=== PATIENT | female | born 1955 | race Caucasian/White ===

== ENCOUNTER 2016-11-26 06:55 | Day surgery (SDC) | payer BC ==
--- NOTE | ~2016-11-26 | EGD ---
EGD REPORT [facility] [address] [address] NAME: KATTY CAMARA : 57 STATUS : REG [facility]#: [id number] AGE: 61 ADM/REG DATE : 11/26/16 MR#: [id number] REPORT SERV DATE: 11/26/16 DICTATED BY: PALAK STILL DATE: 11/26/16 REPORT STATUS : Draft TRANS[facility] BY: [facility] DATE: 11/26/16 Endoscopy Center Patient Name: Katty Camara Date of : 1955 Attending MD: PALAK STILL MD Procedure Date No Time: 11/26/2016 Procedure: Upper GI endoscopy Indications: Follow-up of Esqueda's esophagus Referring MD: CALVIN RIOS Medicines: as per anesthesia Complications: No immediate complications. Procedure: Pre-Anesthesia Assessment: - ASA Grade Assessment: II - A patient with mild systemic disease. After obtaining informed consent, the endoscope was passed under direct vision. Throughout the procedure, the patient's blood pressure, pulse, and oxygen saturations were monitored continuously. The GIF [id number] was introduced through the mouth, and advanced to the third part of duodenum. The upper GI endoscopy was accomplished without difficulty. The patient tolerated the procedure. Findings: There were esophageal mucosal changes secondary to established short-segment Esqueda's disease present in the lower third of the esophagus. The maximum longitudinal extent of these mucosal changes was 1 cm in length. Mucosa was biopsied with a cold forceps for histology randomly at intervals of 1 cm in the lower third of the esophagus. One specimen bottle was sent to pathology. 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 The gastrojejunal anastomosis was characterized by healthy appearing mucosa. This was traversed. The mfqsv-yv-bpbzqau limb was characterized by healthy appearing mucosa. Impression: - Esophageal mucosal changes secondary to established short-segment Esqueda's disease. Biopsied. - Moses-en-Y gastrojejunostomy. The gastrojejunal anastomosis had healthy appearing mucosa. Recommendation: - Await pathology results. - Continue present medications. Procedure Code(s): --- Professional --- 83915, Esophagogastroduodenoscopy, flexible, transoral; EGD REPORT [facility] [address] [place], [place] [address]. [address] NAME: KATTY CAMARA : [birth year] STATUS : REG [facility] PAT#: [id number] AGE: 61 ADM/REG DATE : 11/26/16 MR#: [id number] REPORT SERV DATE: 11/26/16 DICTATED BY: PALAK STILL. DATE: 11/26/16 REPORT STATUS : Draft TRANSCRIBED BY: [employer] DATE: 11/26/16 with biopsy, single or multiple Diagnosis Code(s): --- Professional --- K22.70, Esqueda's esophagus without dysplasia Z98.0, Intestinal bypass and anastomosis status CPT copyright 2013 [employer]. All rights reserved. The codes documented in this report are preliminary and upon leather staker review may be revised to meet current compliance requirements. PALAK STILL MD 11/26/2016 9:59 AM This report has been signed electronically. Number of Addenda: 0 Note Initiated On: 11/26/2016 9:37 AM Scope Withdrawal Time 0 hours 0 minutes 0 seconds [address] [place] [address]
[~2016-11-26 06:55] MED LIST: ATV.5 PO; BIOTIN5 MG OR; CAL PO; CLIMARA0.075 MG TD; FIBER CHOICE PO; L20 PO; LEVSINTAB PO; LORT7 PO; LORTAB PO; MULTIVIT/MIN PO; NEXIUM20 M1 PO; NORV25 PO; OS500+D PO; PR25 PO; VITAMIN B-121000 MC1 SL; VITD PO; WELLSR100 PO; ZOFRAN4 PO; [UNRECOGNIZED DRUG - OTHER] PO
== END 2016-11-26 23:59 | disposition home or self-care (01) ==
LOC: DMU 06:55
PROVIDERS: Internal Medicine Gastroenterology
PROC: 0DB58ZX Excision of Esophagus, Via Natural or Artificial Opening Endoscopic, Diagnostic (ICD-10-PCS; principal; 2016-11-26 09:00)
DX: K22.70 Barrett's esophagus without dysplasia (principal); I10 Essential (primary) hypertension; E66.01 Morbid (severe) obesity due to excess calories; F41.9 Anxiety disorder, unspecified; E78.00 Pure hypercholesterolemia, unspecified; F32.9 Major depressive disorder, single episode, unspecified; N80.9 Endometriosis, unspecified; Z98.84 Bariatric surgery status; Z98.0 Intestinal bypass and anastomosis status; Z90.710 Acquired absence of both cervix and uterus; Z98.890 Other specified postprocedural states; Z90.49 Acquired absence of other specified parts of digestive tract; Z88.8 Allergy status to other drugs, medicaments and biological substances; Z79.899 Other long term (current) drug therapy
CPT/HCPCS: 88305